=== PATIENT | female | born 1935 | race Caucasian/White ===

== ENCOUNTER 2019-08-29 10:39 | Inpatient (IN) | payer MEDICAID ==
[~2019-08-29] VITALS: Ht 157.5 cm; Wt 64.4 kg
[2019-08-29] VITALS (29 sets, daily range): BP systolic 58–170; BP diastolic 33–104
--- NOTE | 2019-08-29 10:40 | NUR ---
PT BIBA RA 41 from Home "Weak/Change in mental Status" PT IS AAOX1, NOT IN RESPIRATORY DISTRESS, HOOKED TO LASERIST, KEPT REST AND COMFORTABLE, WILL CONTINUE TO MONITOR.
--- NOTE | 2019-08-29 10:50 | NUR ---
AT BEDSIDE FOR EVAL.
--- NOTE | 2019-08-29 10:50 | NUR ---
IV LINE ESTABLISHED, BLOOD DRAWN AND SENT TO LAB.
[2019-08-29] MEDS ORDERED: ACETAMINOPHEN ES 500 MG TABLET PO ONE (11:00)
[2019-08-29] MEDS ORDERED: IV NS 0.9% 1,000 ML BAG IV ONE ×2 (11:00→12:00)
[2019-08-29] MEDS ORDERED: CEPH500C2 PO (11:04)
[2019-08-29] MEDS ORDERED: DOCU100C36 PO (11:04)
[2019-08-29] MEDS ORDERED: HYDR-3972 PO (11:04)
[2019-08-29] MEDS ORDERED: METO5TAB2 PO (11:04)
[2019-08-29] MEDS ORDERED: MEGE40TA5 PO (11:04)
[2019-08-29] MEDS ORDERED: METF-442 PO (11:04)
[2019-08-29] MEDS ORDERED: ACETAMINOPHEN ES 500 MG TABLET ONE (11:08)
--- NOTE | 2019-08-29 11:15 | NUR ---
COVID SWAB AND RAPID INFLUENZA OBTAINED AND SENT TO LAB.
[2019-08-29 11:17] LABS: BASOPHILS # (AUTO) 0.2 /CMM (0.0-0.2); EOSINOPHILS % (AUTO) 0.1 % (0.0-6.0); HEMATOCRIT 36 % (33-45); HEMOGLOBIN 12.1 g/dL (11.5-14.8); LYMPHOCYTES # (AUTO) 0.7 /CMM (0.8-4.8); LYMPHOCYTES % (AUTO) 4.7 % (20.0-44.0); MEAN CORPUSCULAR HGB CONC 33 g/dl (31.0-36.0); MEAN CORPUSCULAR VOLUME 96 fL (82-100); MONOCYTES # (AUTO) 0.3 /CMM (0.1-1.30); MONOCYTES % (AUTO) 1.7 % (2.0-12.0); NEUTROPHILS # (AUTO) 14.2 /CMM (1.8-8.9); NEUTROPHILS % (AUTO) 92.5 % (43.0-81.0); PLATELET COUNT (AUTO) 443 /CMM (150-450); RED BLOOD CELL COUNT(AUTO) 3.78 MIL/uL (4.0-5.2); WHITE BLOOD COUNT (AUTO) 15.3 K/uL (4.3-11.0)
--- NOTE | 2019-08-29 11:20 | NUR ---
SURGICAL SUPERVISOR AT BEDSIDE FOR XRAY.
--- NOTE | 2019-08-29 11:30 | NUR ---
[facility] [phone] WILL FAX OVER THE INFO TO US.
--- NOTE | 2019-08-29 11:31 | NUR ---
LACTIC ACID 7.2 MD AWARE
[2019-08-29 11:32] LABS: ALANINE AMINOTRANSFERASE 37 U/L (12-78); ALBUMIN 2.4 g/dL (3.4-5.0); ALKALINE PHOSPHATASE 758 U/L (46-116); ASPARTATE AMINOTRANSFERASE 73 U/L (15-37); B-TYPE NATRIURETIC PEPTIDE 4036 PG/ML (0-125); BILIRUBIN,DIRECT 9.5 mg/dL (0.0-0.2); BILIRUBIN,TOTAL 11.7 mg/dL (0.2-1.0); CALCIUM, SERUM 8.5 mg/dL (8.5-10.1); CARBON DIOXIDE 18 mmol/L (21-32); CHLORIDE 94 mmol/L (98-107); CREATININE 1.2 mg/dL (0.6-1.3); GLUCOSE 124 mg/dL (74-106); POTASSIUM 3.5 mmol/L (3.5-5.1); SODIUM SERUM 130 mmol/L (136-145); TOTAL PROTEIN, SERUM 6.6 g/dL (6.4-8.2); UREA NITROGEN, BLOOD 13 mg/dL (7-18)
--- NOTE | 2019-08-29 11:40 | NUR ---
URINE SPECIMEN COLLECTED AND SENT TO LAB.
--- NOTE | 2019-08-29 11:54 | NUR ---
TECH AT BEDSIDE FOR US.
[2019-08-29 12:00] LABS: APPEARANCE,URINE Clear (CLEAR); BILIRUBIN,URINE LARGE (NEGATIVE); BLOOD, URINE Negative Ery/uL (NEGATIVE); COLOR,URINE Yellow (YELLOW); KETONES,URINE Negative (NEGATIVE); LEUKOCYTE ESTERASE ,URINE Negative (NEGATIVE); NITRITE, URINE Negative (NEGATIVE); PROTEIN,URINE Negative (NEGATIVE); UGLUCOSE 100 MG/DL mg/dL (NEGATIVE); UROBILINOGEN,URINE >=8.0 EU/dL (0.2)
[2019-08-29] MEDS ORDERED: PIPERACILLIN /TAZOBACTAM 3.375 G in IV D5W 50 ML IV ONE (12:00)
[2019-08-29 12:04] LABS: BACTERIA,URINE None seen /HPF (None Seen); RBC,URINE NONE SEEN /HPF (0-2); SQUAMOUS EPITHELIAL CELL,UR Few /HPF (None Seen); WBC,URINE NONE SEEN /HPF (0-3)
--- NOTE | 2019-08-29 12:07 | NUR ---
PICC LINE NURSE AT BEDSIDE.
[2019-08-29 12:10] LABS: CREATINE KINASE, TOTAL 113 U/L (26-192); FERRITIN 928 ng/mL (8-388)
[2019-08-29 12:18] LABS: BAND % (MANUAL) 6 % (0.0-5.0); LYMPHOCYTES % (MANUAL) 5 % (16-48); MONOCYTES % (MANUAL) 5 % (0-11.0); NEUTROPHILS % (MANUAL) 84 (42-76)
[2019-08-29 12:51] LABS: C-REACTIVE PROTEIN 37.1 mg/dL (0.0-0.9)
[2019-08-29] MEDS ORDERED: NOREPINEPHRINE 8 MG in IV NS 0.9% 250 ML IV ONE (13:00)
[2019-08-29] MEDS ORDERED: CT SWABBABLE VALVE TRANS SET 1 EA INFUS.SET MC ONE (13:02)
[2019-08-29] MEDS ORDERED: IV NS 0.9% 250 ML IV ONE (13:02)
[2019-08-29] MEDS ORDERED: IOHEXOL-300 100 ML VIAL IV ONE (13:02)
--- NOTE | 2019-08-29 13:13 | NUR ---
PT IS WHEELED TO CT SCAN VIA [facility].
--- NOTE | 2019-08-29 13:24 | NUR ---
GOT BED ICU 254
--- NOTE | 2019-08-29 14:00 | NUR ---
REPORT GIVEN TO GAYE HERNANDEZ FOR SUNSHINE. WITH ONGOING LEVOPHED TITRATE TO EFFECT.
--- NOTE | 2019-08-29 14:40 | NUR ---
DR BRAR CALLED AND TX TO DR WHELAN
[2019-08-29] MEDS ORDERED: HYDROCODONE/APAP 5/325MG 1 EACH TABLET PO PRN (15:00)
[2019-08-29] MEDS ORDERED: MAGNESIUM HYDROXIDE 30 ML UDC PO PRN (15:00)
[2019-08-29] MEDS ORDERED: INSULIN REGULAR, HUMAN 100 UNIT/ML 3 ML VIAL SQ PRN (15:00)
[2019-08-29] MEDS ORDERED: *INSULIN REGULAR(HUMULIN R)HUM 100 UNIT/ML VIAL SQ PRN (15:00)
[2019-08-29] MEDS ORDERED: ONDANSETRON HCL/PF 4 MG/2 ML VIAL IVP PRN (15:00)
[2019-08-29] MEDS ORDERED: MAG HYDROX/AL HYDROX/SIMETH 30 ML UDC PO PRN (15:00)
[2019-08-29] MEDS ORDERED: ACETAMINOPHEN 325 MG TABLET PO PRN (15:00)
[2019-08-29] MEDS ORDERED: DEXTROSE 50%-WATER 50 ML DISP.SYRIN IV PRN (15:00)
[2019-08-29] MEDS ORDERED: Z GUARD REMEDY 2 OZ OINT TP PRN (15:00)
[2019-08-29] MEDS ORDERED: NOREPINEPHRINE 8 MG in IV NS 0.9% 242 ML IV PRN ×4 (15:30)
--- NOTE | 2019-08-29 15:34 | NUR ---
RN NOTE 1515: Admitted 84 y/o female from ED for Sepsis, LA 7.2 to 6.6 after 2L NS bolus in ER. With TOM PICC, on Levo @ 0.8mcg, will titrate as ordered. Guamanian speaking, c/o 2/[address] 110's on the monitor. Kahn cath intact, noted with luis fernando colored urine. Skin is intact, noted jaundice. Placed on contact, droplet, eye protection prec for R/O Covid, awaiting result Negative result from previous hospital recently. 1530: Placed on D5 1/5 NS @ 75.
[2019-08-29] MEDS ORDERED: FEE PK DOSING 1 MIN EA MC ONE (15:48)
[2019-08-29] MEDS ORDERED: ANESTHESIA TRAY IN PYXIS 1 EA TRAY MC ONE (16:15)
[2019-08-29] MEDS ORDERED: IOHEXOL 240MG/ML 50 ML IV ONE ×2 (16:15→16:51)
[2019-08-29] MEDS ORDERED: INDOMETHACIN 50 MG SUPP.RECT ONE ×2 (16:16→16:51)
--- NOTE | 2019-08-29 16:30 | NUR ---
BRAILLE DUPLICATING MACHINE OPERATOR looked up pt on [facility] and found a contact number for the pt . BRAILLE DUPLICATING MACHINE OPERATOR called and pt' s daughter picked up confirming pt is her mother. Daughter is Portuguese speaking. BRAILLE DUPLICATING MACHINE OPERATOR updated GAYE Yeh in ICU
--- NOTE | 2019-08-29 16:51 | NUR ---
RN NOTE Picked up by OR personnels for emergency ERCP. Anesth spoke with daughter. Patient signed consents. VSS on 0.8mcg.
[2019-08-29] MEDS: BLOOD SUGAR DIAGNOSTIC 1 EACH STRIP VI SCH ×2 (17:38→23:12)
--- NOTE | 2019-08-29 18:43 | NUR ---
RN NOTE 1820: Patient back to room, but still under recovery by a recovery nurse. Per Dr. Barrera, previous CBT stent was removed and place 2 new longer CBT stents. 184: Still recovering by mechanic recovery.
[2019-08-29] MEDS: VANCOMYCIN 0.75 GM in IV D5W 250 ML IV SCH (19:07)
[2019-08-29] MEDS ORDERED: IV NS 0.9% 250 ML IV PRN (19:30)
--- NOTE | 2019-08-29 19:30 | NUR ---
RAIL TRANSPORTATION OPERATOR RCD PT S/P ERCP W/ 2 NEW STENT PLACEMENT; PT IS NSR ON MONITOR. ON LEVOPHED AT 0.4MCG/KG/MIN. PT IS JAUNDICED. PT IS AWAKE BUT LETHARGIC. UNABLE TO FOLLOW COMMANDS. BRIGHT YELLOW URINE NOTED IN ANDERSON. ON SIMPLE MASK AT 6L NC; WILL TITRATE PT CONDITION PERMITS. SACRAL REDNESS NOTED. APPLIED MEPILEX.
[2019-08-29] MEDS: IV D5/0.45 NACL 1,000 ML IV PRN (19:55)
[2019-08-29] MEDS: PIPERACILLIN /TAZOBACTAM 3.375 G in IV D5W 100 ML IV SCH (19:55)
[2019-08-29] MEDS: NOREPINEPHRINE 32 MG in IV NS 0.9% 218 ML IV PRN (19:56)
--- NOTE | 2019-08-29 20:00 | NUR ---
RADIOLOGICAL HEALTH SPECIALIST RCMitch CALL FROM PTS GRAND DAUGHTER MITZY FRANK [phone] PTS DAUGHTER RANDELL [phone]. PER MITZY SHE MAKES DECISION FOR PT SINCE THE PTS DAUGHTER DOES NOT SPEAK CHILEAN.
[2019-08-30] VITALS (80 sets, daily range): BP systolic 72–147; BP diastolic 47–92
--- NOTE | 2019-08-30 02:00 | NUR ---
GPS FIELD DATA COLLECTOR PT AWAKE ALERT ABLE TO FOLLOW COMMANDS AT THIS TIME; SOME CONFUSION NOTED. PT C/O THROAT PAIN AND SOME ABDOMINAL DISCOMFORT. OFFERED PAIN MEDICATION, PT REFUSED. PT WATCHING TV AT THIS TIME. CONTINUE TO MONITOR.
[2019-08-30] MEDS: PIPERACILLIN /TAZOBACTAM 3.375 G in IV D5W 100 ML IV SCH ×3 (02:30→18:17)
--- NOTE | 2019-08-30 04:00 | NUR ---
LENS GRINDER ROUGH PT O2 TITRATED TO 4L VIA NC. PT TOLERATING WELL REMAINS 100%.
[2019-08-30 04:24] LABS: BASOPHILS # (AUTO) 0.3 /CMM (0.0-0.2); BASOPHILS % (AUTO) 0.8 % (0.0-2.0); EOSINOPHILS % (AUTO) 0.4 % (0.0-6.0); HEMATOCRIT 33 % (33-45); HEMOGLOBIN 10.8 g/dL (11.5-14.8); LYMPHOCYTES # (AUTO) 1.8 /CMM (0.8-4.8); LYMPHOCYTES % (AUTO) 5.1 % (20.0-44.0); MEAN CORPUSCULAR HGB CONC 33 g/dl (31.0-36.0); MEAN CORPUSCULAR VOLUME 97 fL (82-100); MONOCYTES # (AUTO) 1.7 /CMM (0.1-1.30); MONOCYTES % (AUTO) 4.9 % (2.0-12.0); NEUTROPHILS # (AUTO) 30.9 /CMM (1.8-8.9); NEUTROPHILS % (AUTO) 88.8 % (43.0-81.0); PLATELET COUNT (AUTO) 406 /CMM (150-450); RED BLOOD CELL COUNT(AUTO) 3.35 MIL/uL (4.0-5.2)
[2019-08-30] MEDS: IV D5/0.45 NACL 1,000 ML IV PRN ×4 (04:30→21:37)
[2019-08-30 04:41] LABS: BILIRUBIN,DIRECT 10.1 mg/dL (0.0-0.2); BILIRUBIN,TOTAL 11.8 mg/dL (0.2-1.0); MAGNESIUM 1.3 mg/dL (1.8-2.4); PHOSPHORUS 3.6 mg/dL (2.5-4.9); POTASSIUM 3.4 mmol/L (3.5-5.1); TOTAL PROTEIN, SERUM 6.2 g/dL (6.4-8.2)
[2019-08-30 04:55] LABS: WHITE BLOOD COUNT (AUTO) 34.8 K/uL (4.3-11.0)
--- NOTE | 2019-08-30 06:00 | NUR ---
PICKLER HELPER LEVOPHED TITRATED TO 0.2 MCG/KG/MIN WITH SBP 90s. CONTINUE TO MONITOR, PT STILL STATES SHE HAS SOME ABD DISCOMFORT THE SAME BEFORE SHE CAME INTO THE HOSPITAL BUT STILL DECLINES PAIN MEDICATION.
[2019-08-30 06:29] LABS: BAND % (MANUAL) 6 % (0.0-5.0); LYMPHOCYTES % (MANUAL) 6 % (16-48); MONOCYTES % (MANUAL) 3 % (0-11.0); NEUTROPHILS % (MANUAL) 85 (42-76)
[2019-08-30] MEDS: BLOOD SUGAR DIAGNOSTIC 1 EACH STRIP VI SCH ×3 (08:00→22:00)
[2019-08-30] MEDS: MORPHINE SULFATE INJ 2 MG/ML DISP.SYRIN IV PRN ×2 (08:04→12:39)
[2019-08-30] MEDS: Magnesium 1GM/D5W 100ML PREMIX 100 ML IV SCH ×2 (08:49→10:06)
[2019-08-30] MEDS: HYDROCORTISONE SOD SUCCINATE 100 MG/2 ML VIAL IV SCH ×3 (08:50→18:13)
[2019-08-30] MEDS: ENOXAPARIN SODIUM 40 MG/0.4 ML DISP.SYRIN SQ SCH (09:31)
--- NOTE | 2019-08-30 10:47 | NUR ---
RN NOTE 0715: Received patient awake, A/Ox3, Yoruba speaking. TOM PICC intact. IVF infusing as ordered. On Levo @ 0.2, will titrate as ordered. ST 100's on the monitor. Patient is jaundice. Kahn cath intact, noted with dark yellow urine drained to BSD. 0800: Lab called and informed Covid test is neg, will do standard prec. C/o abdominal pain, Morphine given as ordered. WBC higher but remained afebrile at this time. 0820: S/E by Dr. Ray, with orders of labs in am. 1045: On K and Mg replacements. No any significant changes noted at this time. Will continue to monitor.
[2019-08-30] MEDS: VANCOMYCIN 0.75 GM in IV D5W 250 ML IV SCH (11:00)
[2019-08-30] MEDS: POTASSIUM CL. PREMIX PERIPHER. 50 ML IV SCH ×2 (12:18→13:03)
[2019-08-30] MEDS ORDERED: DEXTROSE 50%-WATER 50 ML DISP.SYRIN IV PRN ×2 (12:30→19:30)
[2019-08-30] MEDS: INSULIN REGULAR, HUMAN 100 UNIT/ML 3 ML VIAL SQ PRN ×2 (12:36→18:11)
[2019-08-30] MEDS ORDERED: BLOOD SUGAR DIAGNOSTIC 1 EACH STRIP IN SCH (18:00)
--- NOTE | 2019-08-30 18:51 | NUR ---
RN NOTE On Levo @ .1mcg. Per patient, she has passsed gas with help of armor senior sergeant for Belarusian. Tolerated clear liquids for dinner. Tolerated room air. Still with abdominal distension, Dr. Galvez aware. Dr. Staples called with orders of labs in am, will follow up to try to get infi from [facility] tomorrow, will endorse.
--- NOTE | 2019-08-30 20:00 | NUR ---
PASTE MIXING SUPERVISOR notes RECEIVED PT IN BED A/OX 4 WELSH SPEAKING ON ROOM AIR SATING 97% PER ENDORSEMENT PTS S/P ERCP W/ 2 NEW STENT PLACEMENT; PT IS NSR -70 ON MONITOR. ON LEVOPHED AT 0.1MCG/KG/MIN. PT IS JAUNDICED. WITH F/C WITH YELLOW COLOR URINE NOTED .PTS ON CLEAR LIQUIDS ,TURNED AND REPOSITION DONE ,PTS WATCHING TV AT THIS TIME STABLE V/S AFEBRILE.SPOKE TO GRAND DAUGHTER UPDATED WITH PTS CONDITION. ALL NEEDS ATTENDED TOO DUE MEDS GIVEN ORDERED.WILL CONTINUE TO MONITOR PTS ,KEPT PTS CLEAN DRY AND COMFORTABLE.FORMS FOR REQUISITION FOR PATHOLOGY AND MEDICAL RECORD SIGNED BY PTS WILL FAX TO [facility].
--- NOTE | 2019-08-30 22:00 | NUR ---
CASUALTY CLAIMS SUPERVISOR NOTES BLOOD SUGAR FOR 10PM IS 385 MG/DL 10 UNITS OF REGULAR INSULIN GIVEN PER SLIDING SCALE.PTS ON D51/2 NS AT 200CC/HR INFUSING WELL. TOM PICCLINE INTACT AND PATENT LAC g20 INTACT AND PATENT AND SO RAC g#18 INTACT AND PATENT ,WILL CONTINUE TO MONITOR PTS.
[2019-08-30] MEDS: *INSULIN REGULAR(HUMULIN R)HUM 100 UNIT/ML VIAL SQ PRN (22:51)
[2019-08-30] MEDS: VANCOMYCIN 1 GM in IV D5W 250 ML IV SCH (23:11)
[2019-08-31] VITALS (58 sets, daily range): BP systolic 52–156; BP diastolic 32–99
--- NOTE | 2019-08-31 00:17 | NUR ---
COMMERCIAL SALES CONSULTANT NOTES PTS IN SLEEPING ,NO C/O OF PAIN NOTED ,WILL CONTINUE TO MONITOR.
[2019-08-31] MEDS: PIPERACILLIN /TAZOBACTAM 3.375 G in IV D5W 100 ML IV SCH ×3 (01:44→18:54)
[2019-08-31] MEDS: IV D5/0.45 NACL 1,000 ML IV PRN ×2 (02:36→08:57)
--- NOTE | 2019-08-31 04:00 | NUR ---
PICK AND SHOVEL WORKER NOTES MORNING CARE RENDERED ,BED BATH DONE PTS IS BACK O SLEEP.NO SOB NO DISTRESS NOTED ,WILL CONTINUE TO MONITOR,PTS REMAINS ON LEVO 0.1MCG/KG/MIN TOLERATING WELL IVF D5 1/I NS AT 200CC/HR INFUSING WELL ,PTS ON CLEAR LIQUIDS ORDERED . ALL DUE MED GIVEN ORDERED. Addendum: 08/31/19 at 0646 by HOMER LENTZ RN D5 1/2 NS AT 200CC/HR
[2019-08-31 04:43] LABS: BASOPHILS # (AUTO) 0.1 /CMM (0.0-0.2); BASOPHILS % (AUTO) 0.4 % (0.0-2.0); HEMATOCRIT 32 % (33-45); HEMOGLOBIN 10.2 g/dL (11.5-14.8); LYMPHOCYTES # (AUTO) 0.8 /CMM (0.8-4.8); LYMPHOCYTES % (AUTO) 3.1 % (20.0-44.0); MEAN CORPUSCULAR HGB CONC 32 g/dl (31.0-36.0); MEAN CORPUSCULAR VOLUME 97 fL (82-100); MONOCYTES # (AUTO) 0.7 /CMM (0.1-1.30); MONOCYTES % (AUTO) 2.6 % (2.0-12.0); NEUTROPHILS # (AUTO) 24.1 /CMM (1.8-8.9); NEUTROPHILS % (AUTO) 93.9 % (43.0-81.0); PLATELET COUNT (AUTO) 350 /CMM (150-450); RED BLOOD CELL COUNT(AUTO) 3.26 MIL/uL (4.0-5.2); WHITE BLOOD COUNT (AUTO) 25.6 K/uL (4.3-11.0)
[2019-08-31 04:58] LABS: ALBUMIN 1.7 g/dL (3.4-5.0); BILIRUBIN,DIRECT 7.4 mg/dL (0.0-0.2); CALCIUM, SERUM 7.4 mg/dL (8.5-10.1); CREATININE 0.9 mg/dL (0.6-1.3); MAGNESIUM 1.9 mg/dL (1.8-2.4); PHOSPHORUS 2.4 mg/dL (2.5-4.9); POTASSIUM 3.2 mmol/L (3.5-5.1); TOTAL PROTEIN, SERUM 5.6 g/dL (6.4-8.2)
[2019-08-31 05:13] LABS: THYROID STIMULATING HORMONE 1.575 uIU/mL (0.358-3.74)
--- NOTE | 2019-08-31 06:46 | NUR ---
SHIP'S MASTER NOTES WILL ENDORSE PTS TO RN DAY SHIFT FOR CONTINUITY OF CARE.
[2019-08-31] MEDS: HYDROCORTISONE SOD SUCCINATE 100 MG/2 ML VIAL IV SCH ×3 (08:10→17:15)
[2019-08-31] MEDS: BLOOD SUGAR DIAGNOSTIC 1 EACH STRIP VI SCH ×4 (08:10→22:31)
[2019-08-31] MEDS: ENOXAPARIN SODIUM 40 MG/0.4 ML DISP.SYRIN SQ SCH (08:11)
[2019-08-31] MEDS: INSULIN REGULAR, HUMAN 100 UNIT/ML 3 ML VIAL SQ PRN (08:15)
[2019-08-31] MEDS: NOREPINEPHRINE 32 MG in IV NS 0.9% 218 ML IV PRN (08:56)
[2019-08-31] MEDS: HALOPERIDOL LACTATE INJ 5 MG/ML VIAL IM PRN ×2 (09:12→18:29)
[2019-08-31] MEDS: POTASSIUM CHLORIDE 20 MEQ POWDER PACKET PO SCH ×3 (09:30→10:44)
[2019-08-31] MEDS: IV NS 0.9% 1,000 ML IV PRN ×2 (11:00→18:54)
[2019-08-31] MEDS: POTASSIUM CL. PREMIX PERIPHER. 50 ML IV SCH ×4 (11:01→16:13)
[2019-08-31] MEDS ORDERED: NEUTRA PHOS 1 POWD.PACKET PO ONE (12:30)
[2019-08-31] MEDS ORDERED: Sodium Phosphate 15 MMOL in IV NS 0.9% 245 ML IV SCH (15:30)
[2019-08-31] MEDS: VANCOMYCIN 1 GM in IV D5W 250 ML IV SCH (17:36)
[2019-08-31] MEDS: *INSULIN REGULAR(HUMULIN R)HUM 100 UNIT/ML VIAL SQ PRN (22:44)
[2019-09-01] VITALS (41 sets, daily range): BP systolic 81–136; BP diastolic 47–79
[2019-09-01] MEDS: HALOPERIDOL LACTATE INJ 5 MG/ML VIAL IM PRN ×2 (00:54→21:36)
[2019-09-01] MEDS: PIPERACILLIN /TAZOBACTAM 3.375 G in IV D5W 100 ML IV SCH ×3 (01:41→17:35)
[2019-09-01] MEDS ORDERED: LORAZEPAM INJ 2 MG/ML VIAL ONE (02:45)
[2019-09-01] MEDS ORDERED: LORAZEPAM INJ 2 MG/ML VIAL IV PRN (03:00)
--- NOTE | 2019-09-01 03:00 | NUR ---
PT SEVERELY AGITATED, KICKING, TRYING TO BITE WIRES. RELEASED RESTRAINTS FOR MOVEMENT AND TO MOVE PATIENT. CHARGE NURSE CALLED MD. 1 MG ATIVIAN GIVEN FOR SEVERE AGITATION . PT TRYING TO GET OOB, ROLLING AROUND IN BED. PT RE ORIENTATED TO TIME DATE PLACE SITUATION IN AMHARIC, PT REMAINS AGITATED RESTLESS, NOT FOLLOWING COMMANDS. PT HAS HX DEMENTIA. HAS NOT FOLLOWED COMMNADS ALL SHIFT WAS MEDICATED WITH PRN HALDOL. NOT EFFECTIVE. LINENS AGAIN CHANGE. JUSTIN PATENT.
[2019-09-01 04:16] LABS: BASOPHILS # (AUTO) 0.1 /CMM (0.0-0.2); BASOPHILS % (AUTO) 0.3 % (0.0-2.0); EOSINOPHILS % (AUTO) 0.1 % (0.0-6.0); HEMATOCRIT 29 % (33-45); HEMOGLOBIN 9.9 g/dL (11.5-14.8); LYMPHOCYTES # (AUTO) 0.8 /CMM (0.8-4.8); LYMPHOCYTES % (AUTO) 3.8 % (20.0-44.0); MEAN CORPUSCULAR HGB CONC 34 g/dl (31.0-36.0); MEAN CORPUSCULAR VOLUME 95 fL (82-100); MONOCYTES # (AUTO) 0.8 /CMM (0.1-1.30); MONOCYTES % (AUTO) 4.1 % (2.0-12.0); NEUTROPHILS # (AUTO) 18.4 /CMM (1.8-8.9); NEUTROPHILS % (AUTO) 91.7 % (43.0-81.0); PLATELET COUNT (AUTO) 305 /CMM (150-450); RED BLOOD CELL COUNT(AUTO) 3.11 MIL/uL (4.0-5.2)
[2019-09-01 04:31] LABS: ALBUMIN 1.6 g/dL (3.4-5.0); CALCIUM, SERUM 7.5 mg/dL (8.5-10.1); CREATININE 0.9 mg/dL (0.6-1.3); MAGNESIUM 1.7 mg/dL (1.8-2.4); PHOSPHORUS 2.2 mg/dL (2.5-4.9); POTASSIUM 3.3 mmol/L (3.5-5.1)
--- NOTE | 2019-09-01 06:51 | NUR ---
REQUEST FOR MEDICAL RECORDS FOR VALENTE SENT TO [facility] [phone]. CONFIRMATION REC'D DOCUMENT WAS COMPLETE. PAPER WORK IN FRONT OF CHART.
--- NOTE | 2019-09-01 07:00 | NUR ---
RN NOTES RECEIVED PT ON BED, CITIZEN OF [place] SPEAKING ONLY, MOVES AROUND IN BED, OPENS EYES TO PAINFUL STIMULI , VSS STABLE, ON 2L O2 N/C , NO SOB NOTED, ON TELE SR HR IN 70'S , ANDERSON DRAINING TO GRAVITY, R UPPER ARM PICC LINE SITE ,CLEAN, DRY AND INTACT, NS AT 75 CC /HR RUNNING , SR UP x3, CALL LIGHT WITHIN EASY REACH, BED LOCKED AND IN LOWEST POSITION, CONTINUE TO MONITOR
[2019-09-01] MEDS: INSULIN REGULAR, HUMAN 100 UNIT/ML 3 ML VIAL SQ PRN ×3 (08:08→17:35)
[2019-09-01] MEDS: HYDROCORTISONE SOD SUCCINATE 100 MG/2 ML VIAL IV SCH ×3 (08:09→16:41)
[2019-09-01] MEDS: BLOOD SUGAR DIAGNOSTIC 1 EACH STRIP VI SCH ×4 (08:09→21:13)
[2019-09-01] MEDS: ENOXAPARIN SODIUM 40 MG/0.4 ML DISP.SYRIN SQ SCH (08:09)
[2019-09-01] MEDS: Magnesium 1GM/D5W 100ML PREMIX 100 ML IV SCH ×2 (08:53→09:54)
[2019-09-01] MEDS ORDERED: POTASSIUM PHOSPHATE MM 15 MMOL in IV NS 0.9% 250 ML IV SCH (09:00)
[2019-09-01] MEDS: VANCOMYCIN 1 GM in IV D5W 250 ML IV SCH (11:34)
[2019-09-01] MEDS ORDERED: Potassium Chloride 40 MEQ in IV NS 0.9% 1,000 ML IV PRN (12:00)
--- NOTE | 2019-09-01 12:45 | NUR ---
RN NOTES EXPIRATORY WHEEZING NOTED, O2 SAT WNL, DR STATON NOTIFED, ORDER RECEIVED FOR ACCOUNTS ADMINISTRATOR CONSULT , DR VINH ZAPIENFED. CONTINUE TO MONITOR.
[2019-09-01] MEDS ORDERED: FUROSEMIDE 20 MG/2 ML VIAL IV ONE (13:00)
[2019-09-01] MEDS: ALBUTEROL HALF STRENGTH 1.25 MG/3 ML VIAL.NEB NEB SCH ×3 (13:07→19:40)
[2019-09-01] MEDS: IPRATROPIUM NEB FS 0.5 MG/2.5 ML AMPUL.NEB NEB SCH ×3 (13:07→19:40)
[2019-09-01 13:18] LABS: ABG BASE EXCESS -3.5 mmol/L; ABG PCO2 24.3 mmHg (35.0-45.0); ABG PH 7.493 (7.350-7.450); ABG PO2 71.2 mmHg (75.0-100.0); AaDO2 99.8 mmHg; COHb 0.3 % (0.5-1.5); MetHb 0.3 % (0.0-1.5); O2Hb 94.4 % (94.0-97.0); SITE, ABG Right Radial; VENT MODE, BG nasal cannula
--- NOTE | 2019-09-01 13:30 | NUR ---
RN NOTES DR VINH ZAPIENFED REGRADING ABG RESULTS , NO NEW ORDER RECEIVED, CONTINUE TO MONITOR
--- NOTE | 2019-09-01 16:00 | NUR ---
RN NOTES NO EXPIRATORY WHEEZING NOTED AT THIS TIME, O2 SAT WNL , PT RECEIVING BREATHING TX, CONTINUE TO MONITOR .
[2019-09-01] MEDS: LACTULOSE 10 G/15 ML UDC (PYXIS) PO PRN (18:55)
--- NOTE | 2019-09-01 19:18 | NUR ---
RN NOTES REPORT GIVEN TO ROLY RN FOR CONTINUITY OF CARE ,
--- NOTE | 2019-09-01 20:15 | NUR ---
RN NOTES PT TRANSFERRED TO ROOM 102 ICU OVERFLOW VIA ACLS PROTOCOL IN STABLE CONDITION WITH HER BELONGING .
[2019-09-01] MEDS: MORPHINE SULFATE INJ 2 MG/ML DISP.SYRIN IV PRN (21:04)
[2019-09-01] MEDS: *INSULIN REGULAR(HUMULIN R)HUM 100 UNIT/ML VIAL SQ PRN (21:16)
--- NOTE | 2019-09-01 21:30 | NUR ---
RN NOTE PT NOTED TO BE TACHYCARDIC AND WITH MODERATE AGITATION (PULLING LINES, ATTEMPTS TO GET OUT OF BED) KIM MAYO WELL SERVICE FLOOR WORKER WITH ORDER TO GIVE PRN HALDOL. ORDER NOTED AND CARRIED OUT.
[2019-09-02] VITALS (12 sets, daily range): BP systolic 92–128; BP diastolic 46–84
[2019-09-02] MEDS: IPRATROPIUM NEB FS 0.5 MG/2.5 ML AMPUL.NEB NEB SCH ×7 (00:20→23:56)
[2019-09-02] MEDS: ALBUTEROL HALF STRENGTH 1.25 MG/3 ML VIAL.NEB NEB SCH ×7 (00:20→23:56)
[2019-09-02] MEDS: LACTULOSE 10 G/15 ML UDC (PYXIS) PO PRN ×3 (00:59→16:48)
[2019-09-02] MEDS: PIPERACILLIN /TAZOBACTAM 3.375 G in IV D5W 100 ML IV SCH ×2 (01:03→09:05)
[2019-09-02] MEDS: VANCOMYCIN 1 GM in IV D5W 250 ML IV SCH (04:02)
[2019-09-02 07:06] LABS: BASOPHILS # (AUTO) 0.1 /CMM (0.0-0.2); BASOPHILS % (AUTO) 1.2 % (0.0-2.0); EOSINOPHILS % (AUTO) 0.3 % (0.0-6.0); HEMATOCRIT 31 % (33-45); HEMOGLOBIN 10.4 g/dL (11.5-14.8); LYMPHOCYTES # (AUTO) 1.7 /CMM (0.8-4.8); LYMPHOCYTES % (AUTO) 15.5 % (20.0-44.0); MEAN CORPUSCULAR HGB CONC 34 g/dl (31.0-36.0); MEAN CORPUSCULAR VOLUME 96 fL (82-100); MONOCYTES # (AUTO) 0.8 /CMM (0.1-1.30); MONOCYTES % (AUTO) 7.7 % (2.0-12.0); NEUTROPHILS # (AUTO) 8.3 /CMM (1.8-8.9); NEUTROPHILS % (AUTO) 75.3 % (43.0-81.0); PLATELET COUNT (AUTO) 289 /CMM (150-450); RED BLOOD CELL COUNT(AUTO) 3.21 MIL/uL (4.0-5.2)
--- NOTE | 2019-09-02 07:10 | NUR ---
RN INITIAL NOTES RECEIVED PT ASLEEP. EASY TO AROUSE. A/0X1, ALBANIAN SPEAKING. ON 02 VIA NC AT 2LPM. NO SOB NOTED. HOB ELEVATED. TOM PICC IN PLACE. FC IN PLACE. BLE ELEVATED. PT COMFORTABLE. WILL CLOSELY MONITOR
[2019-09-02 07:30] LABS: ALBUMIN 1.8 g/dL (3.4-5.0); BILIRUBIN,DIRECT 3.8 mg/dL (0.0-0.2); CALCIUM, SERUM 7.5 mg/dL (8.5-10.1); MAGNESIUM 1.9 mg/dL (1.8-2.4); TOTAL PROTEIN, SERUM 5.3 g/dL (6.4-8.2)
[2019-09-02 07:37] LABS: POTASSIUM 2.8 mmol/L (3.5-5.1)
[2019-09-02 07:55] LABS: BAND % (MANUAL) 2 % (0.0-5.0); LYMPHOCYTES % (MANUAL) 17 % (16-48); MONOCYTES % (MANUAL) 2 % (0-11.0); NEUTROPHILS % (MANUAL) 79 (42-76)
[2019-09-02] MEDS ORDERED: POTASSIUM CHLORIDE 20 MEQ TAB.PRT.SR PO ONE (08:00)
[2019-09-02 08:06] LABS: AFP, TUMOR MARKER 1.6 ng/mL (0.0-8.3)
[2019-09-02] MEDS: BLOOD SUGAR DIAGNOSTIC 1 EACH STRIP VI SCH ×4 (08:19→21:25)
[2019-09-02] MEDS: POTASSIUM CL. PREMIX PERIPHER. 50 ML IV SCH ×4 (08:24→11:35)
[2019-09-02] MEDS: HYDROCORTISONE SOD SUCCINATE 100 MG/2 ML VIAL IV SCH ×3 (08:24→16:48)
[2019-09-02] MEDS: ENOXAPARIN SODIUM 40 MG/0.4 ML DISP.SYRIN SQ SCH (08:26)
[2019-09-02] MEDS: INSULIN REGULAR, HUMAN 100 UNIT/ML 3 ML VIAL SQ PRN ×3 (08:40→17:13)
--- NOTE | 2019-09-02 11:07 | NUR ---
RN NOTES REPORT GIVEN TO GAYE UMAÑA. TOOK OVER PT'S CARE
[2019-09-02] MEDS: CEFTRIAXONE 1 G in IV D5W 50 ML IV SCH (11:30)
--- NOTE | 2019-09-02 11:30 | NUR ---
RN OPENING NOTES RECEIVED PATIENT FROM ABDELRAHMAN HUIZAR. PATIENT IN STABLE CONDITION AT THE MOMENT, NO ACUTE DISTRESS NOTED. ON 2L OXYGEN SATURATING WELL, NO S.S OF RESPIRATORY DISTRESS NOTED. PATIENT IS RUNNING BAG 3/4 OF POTASSIUM, WILL HANG THE LAST BAG ORDERED. LACTULOSE ORDERED Q6HR PRN FOR PATIENT TO HAVE BM 3-4X PER DAY TO BRING DOWN AMMONIA LEVELS. WILL FOLLOW ORDERS. PATIENT IS ON BILATERAL WRIST RESTRAINTS, SAFETY ASSESSMENT DONE. ALL PATIENT NEEDS ARE MET, SAFETY IS BEING MAINTAINED, CALL LIGHT WITHIN REACH, WILL CONTINUE TO MONITOR CLOSELY.
--- NOTE | 2019-09-02 19:30 | NUR ---
RN NOTE NO ACUTE CHANGES TO PATIENT CONDITION DURING MY SHIFT. WILL CONTINUE TO MONITOR CLOSELY THROUGH THE EDGE TRIMMING MACHINE OPERATOR. PATIENT SAFETY IS BEING MAINTAINED, NO ACUTE DISTRESS NOTED, CALL LIGHT WITHIN REACH, WILL CONTINUE TO MONITOR CLOSELY.
[2019-09-02] MEDS: *INSULIN REGULAR(HUMULIN R)HUM 100 UNIT/ML VIAL SQ PRN (21:24)
[2019-09-03] VITALS: BP 113/70
[2019-09-03] MEDS: ALBUTEROL HALF STRENGTH 1.25 MG/3 ML VIAL.NEB NEB SCH ×4 (03:00→15:19)
[2019-09-03] MEDS: IPRATROPIUM NEB FS 0.5 MG/2.5 ML AMPUL.NEB NEB SCH ×4 (03:00→15:19)
[2019-09-03] MEDS: LACTULOSE 10 G/15 ML UDC (PYXIS) PO PRN (03:01)
[2019-09-03 04:00] VITALS: BP 120/64
--- NOTE | 2019-09-03 05:49 | NUR ---
RN CLOSING NOTES PATIENT REMAINED IN STABLE CONDITION THROUGHOUT MY SHIFT. NO ACUTE CHANGES TO PATIENT CONDITION HAS BEEN NOTED. NO RESPIRATORY DISTRESS AT THIS MOMENT. ALL PATIENT NEEDS ATTENDED TO, SCHEDULED MEDS GIVEN ON TIME. PATIENT SAFETY WAS MAINTAINED, CALL LIGHT WITHIN REACH, WILL ENDORSE TO AM NURSE FOR CONTINUITY OF CARE.
[2019-09-03 06:14] LABS: BASOPHILS % (AUTO) 0.5 % (0.0-2.0); HEMATOCRIT 29 % (33-45); HEMOGLOBIN 9.9 g/dL (11.5-14.8); LYMPHOCYTES # (AUTO) 1.5 /CMM (0.8-4.8); LYMPHOCYTES % (AUTO) 15.8 % (20.0-44.0); MEAN CORPUSCULAR HGB CONC 34 g/dl (31.0-36.0); MEAN CORPUSCULAR VOLUME 95 fL (82-100); MONOCYTES # (AUTO) 0.7 /CMM (0.1-1.30); NEUTROPHILS % (AUTO) 75.7 % (43.0-81.0); PLATELET COUNT (AUTO) 260 /CMM (150-450); WHITE BLOOD COUNT (AUTO) 9.3 K/uL (4.3-11.0)
[2019-09-03 06:37] LABS: ALBUMIN 1.7 g/dL (3.4-5.0); BILIRUBIN,DIRECT 2.8 mg/dL (0.0-0.2); BILIRUBIN,TOTAL 3.9 mg/dL (0.2-1.0); CALCIUM, SERUM 7.5 mg/dL (8.5-10.1); CREATININE 0.7 mg/dL (0.6-1.3); MAGNESIUM 1.7 mg/dL (1.8-2.4); PHOSPHORUS 2.1 mg/dL (2.5-4.9); POTASSIUM 3.3 mmol/L (3.5-5.1)
--- NOTE | 2019-09-03 07:30 | NUR ---
EXECUTIVE PRODUCER OPENING RECEIVED PATIENT SLEEPING AND RESTING IN BED. VS STABLE, NO SIGNS OF DISTRESS. A&O X1, NONVERBAL 2L NC. PATIENT IS ON EXTERNAL TELEMONITOR, SR/ST HR 78. PATIENT HAS TOM PICC LINE. PATIENT HAS ANDERSON CATHETER, DRAINING WELL, CLEAR YELLOW URINE. SAFETY MEASURES IN PLACE. CALL LIGHT WITHIN REACH. BED LOCKED IN THE LOWEST POSITION. WILL CONTINUE TO MONITOR.
[2019-09-03] MEDS: BLOOD SUGAR DIAGNOSTIC 1 EACH STRIP VI SCH ×3 (07:41→17:56)
[2019-09-03 08:00] VITALS: BP 116/66
[2019-09-03] MEDS: HYDROCORTISONE SOD SUCCINATE 100 MG/2 ML VIAL IV SCH ×3 (09:08→17:32)
[2019-09-03] MEDS: ENOXAPARIN SODIUM 40 MG/0.4 ML DISP.SYRIN SQ SCH (09:09)
[2019-09-03] MEDS: *INSULIN REGULAR(HUMULIN R)HUM 100 UNIT/ML VIAL SQ PRN ×3 (09:12→17:55)
[2019-09-03] MEDS: Magnesium 1GM/D5W 100ML PREMIX 100 ML IV SCH ×2 (10:27→11:21)
[2019-09-03] MEDS ORDERED: POTASSIUM PHOSPHATE MM 15 MMOL in IV NS 0.9% 250 ML IV SCH (11:00)
[2019-09-03] MEDS: CEFTRIAXONE 1 G in IV D5W 50 ML IV SCH (11:21)
[2019-09-03 12:00] VITALS: BP 124/72
--- NOTE | 2019-09-03 12:00 | NUR ---
ROOM AIR SAT AT REST 86%,PLACED ON 2LITERS AND SAT IMPROVE 94%.
[2019-09-03 12:38] VITALS: BP 121/68
[2019-09-03 16:00] VITALS: BP_SYST 124; BP_SYST 145; BP_DIAS 72; BP_DIAS 90
--- NOTE | 2019-09-03 18:43 | NUR ---
RN CLOSING NOTES PATIENT HAS BEEN DC FROM THE UNIT IN STABLE CONDITION TO HOME.ANDERSON CATHETER WAS REMOVED; PERIPHERAL IV WAS REMOVED;PICC REMAINED INTACT FOR HOME IV THERAPY. EXIT CARE WAS UTILIZED DURING THE DC PROCESS. BELONGINGS LIST WAS CHECKED OFF. PATIENT FAMILY WAS MADE AWARE OF DC,AND TO FOLLOW UP WITH ONCOLOGIST.
== END 2019-09-03 20:34 | disposition home health service (06) | DRG 720 ==
LOC: ER 10:45 → ICU 14:04 → ICUOV 09-01 20:04 → TELE-TD 09-02 13:33 → MEDSG1 09-03 10:37
PROVIDERS: ADMIT Internal Medicine
PROC: 0F798ZZ Dilation of Common Bile Duct, Via Natural or Artificial Opening Endoscopic (ICD-10-PCS; principal; 2019-08-29)
PROC: 02HV33Z Insertion of Infusion Device into Superior Vena Cava, Percutaneous Approach (ICD-10-PCS; principal; 2019-08-29)
PROC: 0F778DZ Dilation of Common Hepatic Duct with Intraluminal Device, Via Natural or Artificial Opening Endoscopic (ICD-10-PCS; principal; 2019-08-29)
PROC: B548ZZA Ultrasonography of Superior Vena Cava, Guidance (ICD-10-PCS; principal; 2019-08-29)
PROC: BF10YZZ Fluoroscopy of Bile Ducts using Other Contrast (ICD-10-PCS; principal; 2019-08-29)
PROC: 0FPB8DZ Removal of Intraluminal Device from Hepatobiliary Duct, Via Natural or Artificial Opening Endoscopic (ICD-10-PCS; principal; 2019-08-29)
DX: A41.51 Sepsis due to Escherichia coli [E. coli] (principal); N17.0 Acute kidney failure with tubular necrosis; R65.21 Severe sepsis with septic shock; E43 Unspecified severe protein-calorie malnutrition; G93.41 Metabolic encephalopathy; K83.09 Other cholangitis; E87.2 Acidosis; K83.1 Obstruction of bile duct; E88.09 Other disorders of plasma-protein metabolism, not elsewhere classified; C22.1 Intrahepatic bile duct carcinoma; Z85.05 Personal history of malignant neoplasm of liver; Z85.07 Personal history of malignant neoplasm of pancreas; E87.6 Hypokalemia; E87.1 Hypo-osmolality and hyponatremia; E83.42 Hypomagnesemia; E83.39 Other disorders of phosphorus metabolism; D64.9 Anemia, unspecified; E86.1 Hypovolemia; Z68.26 Body mass index [BMI] 26.0-26.9, adult
CPT/HCPCS: 36415; 36600; 71045-TC; 71260-TC; 74018; 76700-TC; 80048-TC; 80053-TC; 80076-TC; 80202-TC; 81000-TC; 82105; 82140-TC; 82378; 82533; 82550-TC; 82728-TC; 82803-TC; 82962-TC; 83540-TC; 83605-TC; 83615-TC; 83690-TC; 83735-TC; 83880; 84100-TC; 84443-TC; 84484-TC; 85025-TC; 85610-TC; 85730-TC; 86140-TC; 86301; 86850-TC; 87040-TC; 87081-TC; 87086-TC; 87186-TC; 88300-TC; 93307-TC; A9563; C1751; C2625; G0378; J0330; J0696; J1630; J1650; J1720; J1815; J1940; J2060; J2270; J2405; J2543; J2704; J3370; J3475; J3480; J3490; J7030; J7050; J7060; Q9966; Q9967